=== PATIENT | male | born 1955 | race African-American/Black ===

== ENCOUNTER → 2024-02-16 | Outpatient (CLI) | payer MEDICARE, MEDICAID | END | disposition home or self-care (01) | LOC: CT 10:34 | PROVIDERS: ATTEND Internal Medicine Critical Care Medicine | DX: S22.41XA Multiple fractures of ribs, right side, initial encounter for closed fracture (principal); R91.1 Solitary pulmonary nodule; J44.9 Chronic obstructive pulmonary disease, unspecified; J47.9 Bronchiectasis, uncomplicated; J43.2 Centrilobular emphysema; I70.0 Atherosclerosis of aorta; X58.XXXA Exposure to other specified factors, initial encounter; Y93.89 Activity, other specified; Y92.89 Other specified places as the place of occurrence of the external cause; Y99.8 Other external cause status | CPT/HCPCS: 71250 ==

== ENCOUNTER → 2024-05-18 | Outpatient (CLI) | payer MEDICARE, MEDICAID ==
[~2024-05-18] MED LIST: ALBU2.5V13 HHN; GABA-532 PO; HYDR-4009 MT; LEVO-65 MT; P20 PO; POTA-205 PO
== END | disposition home or self-care (01) ==
LOC: RAD 10:01
PROVIDERS: ATTEND Internal Medicine Critical Care Medicine
DX: J44.9 Chronic obstructive pulmonary disease, unspecified (principal)
CPT/HCPCS: 71046

== ENCOUNTER 2024-07-17 21:03 | Inpatient (IN) | payer MEDICARE, MEDICAID ==
[~2024-07-17] VITALS: Ht 190.5 cm; Wt 119.3 kg
[~2024-07-17 21:03] MED LIST changes: -POTA-205 PO
[2024-07-17 21:15] VITALS: RESP 32
[2024-07-17] MEDS: ALBUTEROL (0.083%) 2.5MG/3ML NEB HHN STA (21:21)
[2024-07-17] MEDS: IPRATROPIUM BROMIDE (0.02%) 0.5MG/2.5ML NEB HHN STA (21:21)
[2024-07-17] MEDS: METHYLPREDNISOLONE SOD SUCC 125MG/2ML (ACT-O-VIAL) IV STA (21:24)
[2024-07-17 21:36] LABS: HEMATOCRIT. 45.1 % (42.0-52.0); MEAN CORPUSCULAR HGB CONC 33.2 g/dL (31.0-37.0); MEAN CORPUSCULAR VOLUME 96.4 fL (80.0-94.0); MEAN PLATELET VOLUME 7.8 fl (7.4-10.4); PLATELET 194 x1000/uL (130-400); RED BLOOD CELL COUNT 4.68 mill/uL (4.7-6.1); RED CELL DISTRIBUTION WIDTH 15.1 % (11.6-14.6); WHITE BLOOD COUNT 11.6 x1000/uL (4.5-11.0)
[2024-07-17 21:38] LABS: BG BASE EXCESS -0.2 mmol/L (-2.0-3.0); BG CARBOXYHEMOGLOBIN 0.4 % (0.5-1.5); BG DEOXYHEMOGLOBIN 0.1 % (0.0-5.0); BG FRACTION INSPIRED OXYGEN 80; BG HCO3 ACT 27.3 mmol/L (21.0-28.0); BG METHEMOGLOBIN 0.1 % (0.5-1.5); BG OXYGEN SATURATION 99.9 % (94.0-98.0); BG OXYHEMOGLOBIN 99.4 % (94.0-98.0); BG PCO2 55.8 mmHg (35.0-48.0); BG PH 7.307 (7.350-7.450); BG PO2 421.2 mmHg (83.0-108.0); BG SAMPLE SITE RIGHT RADIAL; BG TOTAL HEMOGLOBIN 15.6 g/dL (13.5-17.5); BG VENT MODE MASK - BIPAP
[2024-07-17 21:41] LABS: DIFFERENTIAL COMMENT 1
[2024-07-17 21:42] LABS: CARBON DIOXIDE 29 mEq/L (21-32); CHLORIDE 104 mEq/L (98-107); POTASSIUM 3.5 mEq/L (3.5-5.1); SODIUM 141 mEq/L (136-145)
[2024-07-17 21:43] LABS: CALCIUM 9.3 mg/dL (8.7-10.4)
[2024-07-17 21:47] LABS: CREATININE 0.9 mg/dL (0.6-1.3); GLUCOSE 137 mg/dL (70-105)
[2024-07-17 21:48] LABS: UREA NITROGEN BLOOD 7 mg/dL (9-23)
[2024-07-17 21:49] LABS: ALANINE AMINOTRANSFERASE 28 IU/L (10-49); ALBUMIN 4.5 g/dL (3.2-4.8); ASPARTATE AMINOTRANSFERASE 20 IU/L (<34); TROPONIN I HIGH SENSITIVITY 29 ng/L (3.0-53)
[2024-07-17 21:50] LABS: BILIRUBIN DIRECT 0.2 mg/dL (<=3.0); BILIRUBIN TOTAL 0.7 mg/dL (0.1-1.0); PROTEIN TOTAL 6.7 g/dL (6.0-8.3)
[2024-07-17] MEDS: CEFTRIAXONE 1GM/50ML 50 ML IV ONE (22:50)
[2024-07-17 23:04] LABS: ANISOCYTOSIS 1+; PLATELET ESTIMATE NORMAL
[2024-07-18] MEDS: AZITHROMYCIN 500MG/250ML 250 ML IV SCH (00:08)
[2024-07-18 00:10] VITALS: RESP 20
[2024-07-18 03:42] VITALS: RESP 21
[2024-07-18] MEDS ORDERED: ACETAMINOPHEN 325MG TABLET PO PRN (13:15)
[2024-07-18] MEDS ORDERED: ONDANSETRON HCL 4MG/2ML INJ IV PRN (13:15)
[2024-07-18] MEDS: KETOROLAC 15MG/ML VIAL IV PRN (14:59)
[2024-07-18] MEDS: METHYLPREDNISOLONE SOD SUCC 40MG/ML (ACT-O-VIAL) IV SCH (14:59)
[2024-07-18] MEDS: FUROSEMIDE 40MG/4ML VIAL IVP SCH (18:54)
[2024-07-18 20:29] VITALS: PULSE 88; RESP 20; O2SAT 96
[2024-07-18] MEDS: IPRATROPIUM/ALBUTEROL 0.5-3(2.5)MG/3ML NEB HHN SCH (20:29)
[2024-07-18 20:36] VITALS: BP 145/98; PULSE 88; RESP 23; TEMP 36.55848; O2SAT 99
[2024-07-18 20:39] VITALS: BP 145/98; PULSE 84; RESP 23; TEMP 36.5848
[2024-07-18] MEDS: ENOXAPARIN 30MG/0.3ML SYR SUBCUT SCH (22:02)
[2024-07-18] MEDS ORDERED: HYDRALAZINE 20MG/ML VIAL IV SCH (22:55)
[2024-07-19] VITALS (10 sets, daily range): BP systolic 118–151; BP diastolic 74–111; PULSE 71–97; RESP 14–27; TEMP 36.61404–36.9474; O2SAT 90–98
[2024-07-19 10:57] LABS: BG BASE EXCESS 0.8 mmol/L (-2.0-3.0); BG CARBOXYHEMOGLOBIN 0.9 % (0.5-1.5); BG DEOXYHEMOGLOBIN 7.7 % (0.0-5.0); BG FRACTION INSPIRED OXYGEN 21; BG HCO3 ACT 24.6 mmol/L (21.0-28.0); BG METHEMOGLOBIN 0.3 % (0.5-1.5); BG OXYGEN SATURATION 92.2 % (94.0-98.0); BG OXYHEMOGLOBIN 91.1 % (94.0-98.0); BG PH 7.441 (7.350-7.450); BG PO2 60.1 mmHg (83.0-108.0); BG SAMPLE SITE RIGHT RADIAL; BG VENT MODE ROOM AIR
[2024-07-19 12:57] LABS: TROPONIN I HIGH SENSITIVITY 23 ng/L (3.0-53)
[2024-07-20] VITALS (9 sets, daily range): BP systolic 129–146; BP diastolic 97–114; PULSE 71–95; RESP 17–28; TEMP 36.55848–37.05852; O2SAT 93–97
[2024-07-20] MEDS ORDERED: P20 PO (09:28)
[2024-07-20] MEDS ORDERED: GUAI600T26 MT (09:28)
[2024-07-20] MEDS ORDERED: BENZONATATE 100MG CAPSULE PO PRN (14:45)
[2024-07-20] MEDS: TERBUTALINE SULFATE 1MG/ML VIAL SUBCUT NR (17:19)
[2024-07-20] MEDS: MONTELUKAST SODIUM 10MG TABLET PO SCH (17:19)
[2024-07-20] MEDS ORDERED: FAMOTIDINE 20MG TABLET PO SCH (21:00)
[2024-07-20] MEDS ORDERED: FLUTICASONE PROPIONATE 50MCG/SPRAY BOTTLE BOTHNSTRLS SCH (21:00)
== END 2024-07-20 20:00 | disposition home or self-care (01) | DRG 133 ==
LOC: ER 21:03 → MICUSO 22:16 → EDBEDREQSVC 07-18 08:17 → 5WST 07-18 12:09 → 3WST 07-18 18:33
PROVIDERS: ADMIT Internal Medicine; ATTEND Internal Medicine
PROC: 5A09357 Assistance with Respiratory Ventilation, Less than 24 Consecutive Hours, Continuous Positive Airway Pressure (ICD-10-PCS; principal; 2024-07-17)
PROC: 5A09357 Assistance with Respiratory Ventilation, Less than 24 Consecutive Hours, Continuous Positive Airway Pressure (ICD-10-PCS; 2024-07-18)
DX: J96.21 Acute and chronic respiratory failure with hypoxia (principal); I50.23 Acute on chronic systolic (congestive) heart failure; J44.1 Chronic obstructive pulmonary disease with (acute) exacerbation; E66.2 Morbid (severe) obesity with alveolar hypoventilation; Z20.822 Contact with and (suspected) exposure to COVID-19; I11.0 Hypertensive heart disease with heart failure; Z87.891 Personal history of nicotine dependence; Z68.32 Body mass index [BMI] 32.0-32.9, adult
CPT/HCPCS: 36415; 36600; 71045; 80048; 80076; 82375; 82805; 83880; 84484; 85025; 87426; 87804; 93005; 94640; 94660; 99291; A6261; J0456; J0696; J1650; J1885; J1940; J2919; J2920; J3105